=== PATIENT | male | born 1935 | race Caucasian/White ===

== ENCOUNTER 2020-11-25 16:02 | Inpatient (IN) | payer OTHER, BC, SELFPAY ==
[~2020-11-25] VITALS: Ht 182.9 cm; Wt 113.4 kg
[2020-11-25 16:04] VITALS: BP 149/81
--- NOTE | 2020-11-25 16:05 | NUR ---
PT WHEELCHAIRED TO BED 12. Addendum: 11/25/20 at 1631 by [email or web address] PT BIBA TO BED 12.
--- NOTE | 2020-11-25 16:06 | NUR ---
84 Y/O M BIBA by referral from Dr. Steel for R foot gangrene. Per pt he hit his foot on the commode x2wks ago causing the infection. Infection worsened pt reports white drainage but denies pain. Per pt was advised to go to hospital to be treated for blood clot November 07 but pt refused care. RX: Vitamin C 500mg BID, Eliquis, 5mg, Lasix 40mg, Lisinopril 20mg BID, Simvastatin 20mg SurgHx: total R hip replacement, pacemaker Jun 2016, appendicitis PMH: COPD, DVT, HTN, HPD, DM2 ALLX: PCN, Sulfa
[2020-11-25] MEDS ORDERED: NACL 0.9% 1,000 ML IV ONE (16:40)
--- NOTE | 2020-11-25 16:50 | NUR ---
andrae swab collected and taken to lab
--- NOTE | 2020-11-25 17:00 | NUR ---
labs collected and given to ear mold laboratory technician
[2020-11-25 17:24] LABS: BASOPHILS # (AUTO) 0.1 K/uL (0.00-0.22); BASOPHILS % (AUTO) 0.4 % (0.0-2.0); EOSINOPHILS # (AUTO) 0.1 K/uL (0-0.4); HEMATOCRIT 32.3 % (36-52); HEMOGLOBIN 10.8 g/dL (12.0-18.0); LYMPHOCYTES # (AUTO) 0.8 K/uL (2.0-11.5); MEAN CORPUSCULAR HEMOGLOBIN 35 pg (27-31); MEAN CORPUSCULAR HGB CONC 34 g/dL (33-37); MEAN CORPUSCULAR VOLUME 105.4 fL (80-94); MONOCYTES # (AUTO) 1.4 K/uL (0.8-1.0); MONOCYTES % (AUTO) 10.7 % (1.7-9.3); NEUTROPHILS # (AUTO) 10.7 K/uL (1.8-7.7); NEUTROPHILS % (AUTO) 81.9 % (42.2-75.2); PLATELET COUNT (AUTO) 395 K/uL (140-450); RED BLOOD CELL COUNT(AUTO) 3.07 MIL/uL (4.20-6.10); RED CELL DISTRIBUTION WIDTH 16.4 % (11.6-13.7); WHITE BLOOD COUNT (AUTO) 13.1 K/uL (4.8-10.8)
[2020-11-25] MEDS ORDERED: APIX5TAB PO (17:24)
[2020-11-25] MEDS ORDERED: ASCO500T95 PO (17:24)
[2020-11-25] MEDS ORDERED: LISI-487 PO (17:24)
[2020-11-25] MEDS ORDERED: FURO-570 PO (17:24)
[2020-11-25] MEDS ORDERED: SIMV20TA1 PO (17:24)
[2020-11-25] MEDS ORDERED: VANCOMYCIN 1,000 MG in DEXTROSE 5% 250 ML IV ONE (17:25)
--- NOTE | 2020-11-25 17:31 | NUR ---
rad at bedside
[2020-11-25] MEDS ORDERED: VANCOMYCIN 1,000 MG VIAL ONE (17:32)
--- NOTE | 2020-11-25 17:35 | NUR ---
DR. TORRES AT BEDSIDE.
[2020-11-25] MEDS ORDERED: HYDROcodone/APAP 5/325 MG 1 TAB TAB PO PRN (17:40)
[2020-11-25] MEDS ORDERED: MORPHINE SULFATE 2 MG/ML SYR IVP PRN (17:40)
[2020-11-25] MEDS ORDERED: ONDANSETRON 4 MG/2 ML VIAL IVP PRN (17:40)
[2020-11-25] MEDS ORDERED: LORazepam 2 MG/ML VIAL IVP PRN (17:40)
[2020-11-25] MEDS ORDERED: DEXTROSE 50% 50 ML SYR IVP PRN (17:40)
[2020-11-25 17:51] LABS: ALBUMIN 2.4 g/dL (3.4-5.0); ANION GAP 8.7 (8-16); ASPARTATE AMINOTRANSFERASE 14 U/L (15-37); CARBON DIOXIDE 31.7 mmol/L (21-32); CHLORIDE 100 mmol/L (98-107); GLUCOSE 149 mg/dL (74-106); POTASSIUM 4.4 mmol/L (3.5-5.1); SODIUM SERUM 136 mmol/L (136-145); TOTAL BILIRUBIN 0.6 mg/dL (0.0-1.0); UREA NITROGEN, BLOOD 33 mg/dL (7-18)
[2020-11-25] MEDS ORDERED: MEROPENEM 1,000 MG in NACL 0.9% 100 ML IV ONE (17:55)
--- NOTE | 2020-11-25 18:05 | NUR ---
PT PROVIDED WITH DINNER TRAY
[2020-11-25 18:15] LABS: PROTHROMBIN TIME 10.8 secs (10.8-13.4)
--- NOTE | 2020-11-25 19:16 | NUR ---
REPORT GIVEN TO SUNIL BACA. TRANSFER OF CARE AT THIS TIME.
--- NOTE | 2020-11-25 19:22 | NUR ---
RECEIVED REPORT FROM AMARA BARBER, FOR CONTINUITY OF CARE
--- NOTE | 2020-11-25 20:40 | NUR ---
Pt report given to SUNIL AMATO. Transfer of care at this time.
--- NOTE | 2020-11-25 20:59 | NUR ---
Patient will be admitted to care of DR. TORRES. Admited to MEDR. Will go to room 120B. Belongings list completed. Report to SUNIL AMATO.
[2020-11-25] MEDS: lisinopriL 20 MG TAB PO SCH (21:00)
[2020-11-25] MEDS: ASCORBIC ACID 500 MG TAB PO SCH (21:00)
[2020-11-25] MEDS: BLOOD GLUCOSE MONITORING 1 DEV DEV FS SCH (21:00)
[2020-11-25 21:03] VITALS: BP 129/65
[2020-11-25] MEDS ORDERED: VANCOMYCIN PER PHARMACY MC PRN (21:55)
[2020-11-25] MEDS: MEROPENEM 1,000 MG in NACL 0.9% 100 ML IV SCH (22:46)
[2020-11-25] MEDS: APIXABAN 2.5 MG TAB PO SCH (22:49)
[2020-11-25] MEDS: INSULIN LISPRO SLIDING SCALE 100 UNITS/ML VIAL SUBQ PRN (22:54)
--- NOTE | 2020-11-25 23:30 | NUR ---
ADMITTED A 84 Y/O MALE PATIENT FROM ER VIA [facility] WITH THE CHIEF COMPLAINT OF GANGRENE RIGHT FOOT. ALERT, AWAKE, VERBALLY RESPONSIVE. PLACED SAFELY IN BED. NO ACUTE DISTRESS , NO SHORTNESS OF BREATH, RESPIRATION EVEN AND UNLABORED. LUNGS CLEAR, BOWEL SOUNDS HEARD IN ALL FOUR QUADRANT. PATIENT IS ALLERGY TO SULFA AND PENICILLIN. MRSA SWAB DONE. PATIENT STATED HE HAD LARGE BM THIS AFTERNOON BEFORE GOING TO THE HOSPITAL. BELONGINGS PLACED IN THE ROOM. NEEDS ATTENDED TO.
[2020-11-26] VITALS: BP 129/65
[2020-11-26 04:00] VITALS: BP 129/65
[2020-11-26 05:29] LABS: BASOPHILS # (AUTO) 0.1 K/uL (0.00-0.22); BASOPHILS % (AUTO) 0.7 % (0.0-2.0); EOSINOPHILS # (AUTO) 0.1 K/uL (0-0.4); HEMATOCRIT 30.1 % (36-52); HEMOGLOBIN 10.3 g/dL (12.0-18.0); LYMPHOCYTES # (AUTO) 0.9 K/uL (2.0-11.5); LYMPHOCYTES % (AUTO) 8.1 % (20.5-51.1); MEAN CORPUSCULAR HEMOGLOBIN 36 pg (27-31); MEAN CORPUSCULAR HGB CONC 34 g/dL (33-37); MEAN CORPUSCULAR VOLUME 104.8 fL (80-94); MONOCYTES # (AUTO) 1.4 K/uL (0.8-1.0); MONOCYTES % (AUTO) 11.8 % (1.7-9.3); NEUTROPHILS # (AUTO) 9.1 K/uL (1.8-7.7); NEUTROPHILS % (AUTO) 78.4 % (42.2-75.2); PLATELET COUNT (AUTO) 375 K/uL (140-450); RED BLOOD CELL COUNT(AUTO) 2.88 MIL/uL (4.20-6.10); RED CELL DISTRIBUTION WIDTH 16.2 % (11.6-13.7); WHITE BLOOD COUNT (AUTO) 11.7 K/uL (4.8-10.8)
[2020-11-26] MEDS: ACETAMINOPHEN 325 MG TAB PO PRN ×2 (05:30→11:43)
[2020-11-26] MEDS: MEROPENEM 1,000 MG in NACL 0.9% 100 ML IV SCH ×3 (05:32→23:17)
[2020-11-26 05:35] LABS: ALBUMIN 2.2 g/dL (3.4-5.0); ANION GAP 10.1 (8-16); ASPARTATE AMINOTRANSFERASE 13 U/L (15-37); CARBON DIOXIDE 29.4 mmol/L (21-32); CHLORIDE 101 mmol/L (98-107); GLUCOSE 185 mg/dL (74-106); PHOSPHORUS 3.1 mg/dL (2.5-4.9); POTASSIUM 4.5 mmol/L (3.5-5.1); SODIUM SERUM 136 mmol/L (136-145); TOTAL BILIRUBIN 0.7 mg/dL (0.0-1.0); UREA NITROGEN, BLOOD 30 mg/dL (7-18)
[2020-11-26] MEDS ORDERED: VANCOMYCIN 1,000 MG VIAL ONE (05:42)
[2020-11-26] MEDS ORDERED: VANCOMYCIN 1GM/DEXT 5% PREMIX 200 ML IV SCH (06:00)
[2020-11-26] MEDS: BLOOD GLUCOSE MONITORING 1 DEV DEV FS SCH ×4 (06:40→21:00)
[2020-11-26] MEDS: INSULIN LISPRO SLIDING SCALE 100 UNITS/ML VIAL SUBQ PRN ×2 (06:44→12:56)
--- NOTE | 2020-11-26 07:35 | NUR ---
ENDORSED TO THE AM RN FOR CONTINUITY OF CARE
--- NOTE | 2020-11-26 07:40 | NUR ---
RECEIVED BEDSIDE REPORT FROM LOSS PREVENTION REPRESENTATIVE NURSE. PT AOX4. ABLE TO MAKE NEEDS KNOWN. RESPIRATION EVEN AND UNLABORED. NO RESPIRATORY DISTRESS NOTED. ON ROOM AIR. SKIN IS WARM AND DRY. NOTED GANGRENE TOES ON RIGHT FOOT AND OPEN TO AIR. IV SITE ON LAC 22 G TKO. INTACT AND PATENT. NO COMPLAIN OF PAIN AT THIS MOMENT. PLAN OF CARE DISCUSSED. SAFETY PRECAUTIONS IN PLACE. WILL CONTINUE TO MONITOR.
[2020-11-26 08:00] VITALS: BP 146/79
--- NOTE | 2020-11-26 10:26 | NUR ---
PATIENT HAS BEEN SCREENED AND CATEGORIZED HIGH NUTRITION RISK. PATIENT WILL BE SEEN WITHIN 1-2 DAYS OF ADMISSION. 11/26/20 11/27/[address]
[2020-11-26] MEDS: ASCORBIC ACID 500 MG TAB PO SCH ×2 (10:35→23:16)
[2020-11-26] MEDS: APIXABAN 2.5 MG TAB PO SCH ×2 (10:36→21:00)
[2020-11-26] MEDS: lisinopriL 20 MG TAB PO SCH ×2 (10:37→23:16)
[2020-11-26] MEDS: FUROSEMIDE 40 MG TAB PO SCH (10:37)
--- NOTE | 2020-11-26 10:40 | NUR ---
ALL SCHEDULED MEDS GIVEN. PT IS STABLE. NO DISTRESS NOTED. WILL CONTINUE TO MONITOR.
--- NOTE | 2020-11-26 12:18 | NUR ---
BLOOD SUGAR CHECK IS 160. INSULIN COVERAGE NEEDED. ADMINISTERED 2 UNITS OF INSULIN SQ PER MD ORDERED.
--- NOTE | 2020-11-26 12:55 | NUR ---
SOCIAL WORK NOTE: Patient's Orientation Unable To Assess Information Provided By AUSTIN MERRILL - Comments SW WAS UNABLE TO MEET PATIENT AT BEDSIDE. SW COMPLETED ASSESSMENT WITH PATIENT'S . Liner Replacer, Realtionship and Phone Number AUSTIN MERRILL [phone] Healthcare Power of Supervisor Lead Burning No Does Patient Have a POLST No Identifying Problems No Social Work Triggers Is A Social Work Consult Needed No Mandate Report Filed No Explanation Of Identifying Problems PATIENT IS AN 84-YEAR-OLD MALE ADMITTED FOR GANGRENE. PATIENT HAS PMHX OF COPD. Admitted From Home Home Health Provider [facility] Pre-Admission Level Of Functioning Status Assist With ADL Level Of Functioning Comment PER , PATIENT REQUIRES ASSISTANCE WITH PREPARING MEALS AND CLEANING. STATED PATIENT IS ABLE TO BATHE HIMSELF USING DME AND IS ABLE TO USE RESTROOM BUT OFTEN DOES NOT GET OUT OF BED. Prior Resources/Services Used In Last 12 Months Home Health Care Prior DME Bedside Commode Shower Chair/Tub Bench Walker Wheelchair Dialysis Comments N/A Living Situation House Lives With Spouse Patient Had Caregiver No Home Support No Caregiver Issues CG/Fam Able To Meet Need Financial Issues No Known Financial Issue Referral To The Financial Counselor Needed No Factors/Needs No D/C Needs Identified Pt/Rep Participated In Discharge Plan Yes Discharge Plan Comments TENTATIVE DISCHARGE PLAN IS FOR PATIENT TO RETURN HOME. DC Plan Status Initiated
--- NOTE | 2020-11-26 13:08 | NUR ---
WOUND CARE EVALUATION NOTES: REASON FOR EVALUATION: BLE WOUNDS SKIN ASSESSMENT DONE ON WITH THIS 81 Y/O PATIENT ADMITTED TO [facility] WITH INITIAL DIAGNOSIS OF LEGS PAIN. PAST MEDICAL HISTORY: COPD, DVT, HYPERTENSION, HYPERLIPIDEMIA. ALL ABOVE INFORMATION WAS OBTAINED FROM THE ADMISSION H&P. AND PT. PT IS AAX4. X- RAY RESULTS REVIEWED WITH PRIMARY RN. PLAN OF CARE DISCUSSED WITH PRIMARY RN AND PT. PT. VERBALIZES UNDERSTANDING. INTEGUMENTARY: -LLE MULTIPLE BROWN/ BLACK DRY STABLE SCABS WITH LARGEST TO LEFT LATERAL LEG 2X2.5CM STABLE BLACK ESCHAR -LEFT TOES MULTIPLE DRY BLACK /BROWN SCABS, LEFT HALLUX MISSING TOE NAIL AND WOUND BED IS 100% BLACK, INTERSPACES BROWN COLOR PIN POINTS SCABS -RIGHT LATERAL KNEE 3X3CM DRY STABLE SCAB, XIOMARA WOUND SKIN NORMAL AND INTACT -RLE CELLULITIS WITH +2 EDEMAS, MULTIPLE PARTIAL THICKNESS SKIN LOSS FROM KNEE DOWN TO DORSAL FOOT AND LARGEST WOUND TO RIGHT DORSAL FOOT 2.5X1.5X0.1CM WOUND BED 100% GRANULATING TISSUE, SMALL AMOUNT SEROSANGUINEOUS BLEEDING, NO ODOR, IRREGULAR WOUND SHAPE, WOUND EDGE SCABBING, WITH XIOMARA-WOUND SKIN ERYTHEMA, SWELLING, MOIST AND INTACT. OTHER MULTIPLE PARTIAL THICKNESS SKIN LOSS WOUND BEDS ARE MOIST AND PINK, NO ODORS. XIOMARA WOUND SKIN ERYTHEMA AND INTACT. -RIGHT 2ND DIGIT TOE, GANGRENE, 3X1CM, XIOMARA-WOUND SKIN DRY, SCABBING, INTERSPACES BLACK RECOMMENDATIONS: -PENDING SURGEON AND [employer]HALT SPREADER CONSULT TO BLE -CLEANSE RLE WOUNDS WITH NS. PAT DRY PACK WITH XEROFORM DRESSING AND COVER WITH DRY DRESSING, WRAP WITH KERLIX ROLLS, SECURE WITH TAPE 3X/W ON M-W-F AND PRN IF SOILING -PAINT BLE DRY SCABS, RIGHT 2ND TOE, LEFT TOES AND INTERSPACES WITH BETADINE SOLUTION BID AND UTILITY DRIVER -KEEP AREA DRY AND CLEAN AT ALL TIME, OFFLOADING BILATERAL HEELS RECOMMENDATIONS DISCUSSED WITH PRIMARY RN. PLEASE CONTACT WOUND CARE NURSE FOR ANY QUESTIONS AND CHANGES IN SKIN CONDITION.
--- NOTE | 2020-11-26 13:15 | NUR ---
WOUND CARE NURSE AT BEDSIDE
--- NOTE | 2020-11-26 14:10 | NUR ---
DC PLANNIN YRS OLD MALE PATIENT WAS ADMITTED FROM HOME WITH A DX OF GANGRENE PT HAS A HX OF HTN, HLD. FOOT X-RAY SHOWED RIGHT 2ND TOE GANGRENE .RAPID COVID TEST NEGATIVE, BLOOD CULTURE PENDING. ADMINISTERED IVF, IV ABX VANCO AND MEROPENEM. CONSULTED WITH SURGEON, ID AND PODIATRY. DC PLAN TO GO HOME WHEN STABLE CM TO FOLLOW. Addendum: 11/29/20 at 1135 by Shannon Jeffers CM DC LICENSED CUSTOMS BROKER: SPOKE TO PATIENTS ABOUT HOME HEALTH, SHE STATED THAT HE DOES HAVE HOME HEALTH, HOWEVER SHE CAN NOT CARE FOR HIM AT HOME AT THIS TIME BECAUSE PATIENT HAS BEEN CONFUSED AT WEAK AT TIMES. SHE STATED THAT PATIENT WAS AT [facility] FOR SOME TIME AND SHE PREFERS US TO SEND HIM THERE. DR. TORRES MADE AWARE. Addendum: 11/29/20 at 1159 by Shannon Jeffers CM DC LICENSED CUSTOMS BROKER: FAXED TO [facility] AND SPOKE TO KERVIN IN ADMISSIONS SHE WILL REVIEW AND CONTACT ME BACK SHORTLY. Addendum: 11/29/20 at 1326 by Shannon Jeffers CM DC LICENSED CUSTOMS BROKER: PATIENTS WAS ABLE TO SPEAK TO PATIENTS PCP HE WORKS WITH DR. TORRES AND DISCUSSED COMMUNITY EXTENDED CARE WITH HER. SHE IS AGREEABLE TO [place] [facility] Addendum: 11/29/20 at 1350 by Shannon Jeffers CM DC LICENSED CUSTOMS BROKER: RECEIVED A CALL FROM SHAHEED [place] [facility] [place]IENT HAS BEEN ACCEPTED TO ROOM 53-A UNDER DR. TORRES. THEY ARE ABLE TO COVER TRANSPORTATION. Addendum: 11/29/20 at 1444 by Shannon Jeffers CM [facility] [address] [place] [address] TORRES TRANSPORTATION 3:30 PM WITH PERSONAL CARE TRANSPORTATION [phone]
--- NOTE | 2020-11-26 14:40 | NUR ---
DISCUSSED WITH PATIENT REGARDING CONTRAST CONSENT FORM. PATIENT VERBALIZED UNDERSTANDING AND SIGNED CONSENT. FAXED CONSENT FORM TO DR. COHEN FOR HIM TO SIGN. AWAITING FOR MD TO FAX THE CONSENT FORM BACK WITH SIGNATURE
[2020-11-26 16:00] VITALS: BP 148/80
--- NOTE | 2020-11-26 17:51 | NUR ---
RECEIVED CONTRAST CONSENT FORM WITH MD SIGNATURE. AWAITING FOR DELIVERY DRIVER TO PICK PATIENT UP
--- NOTE | 2020-11-26 17:56 | NUR ---
11/26/20 RD INITIAL ASSESSMENT COMPLETED PLEASE REFER TO NUTRITION ASSESSMENT UNDER CARE ACTIVITY FOR ESTIMATED NUTRITIONAL NEEDS. 1. CONTINUE CCHO 60 GM DIET TOLERATED 2. RECOMMEND NAHID BID 3. RECOMEND ZINC AND VIT C X 21 DAYS FOR WOUND HEALING 4. RD TO F/U IN 3-5 DAYS, MODERATE RISK CONCEPCION CONDE RD
[2020-11-26] MEDS ORDERED: VANCOMYCIN 1,000 MG in NACL 0.9% 250 ML IV SCH (18:00)
--- NOTE | 2020-11-26 18:30 | NUR ---
CONTACTED FOUNDER CEO & PRESIDENT AND NOTIFIED PATIENT WAS EATING. CT PROCEDURE DELAYED TILL 2099.
--- NOTE | 2020-11-26 19:20 | NUR ---
ENDORSED TO PREFITTER NURSE FOR CONTINUITY OF CARE. PT IS STABLE.
--- NOTE | 2020-11-26 19:21 | NUR ---
RECEIVED PATIENT FROM AM SHIFT RN AWAKE , ALERT BREATHING REGULAR NON LABORED. NO ACUTE DISTRESS. DENIES PAIN. SKIN WARM AND DRY TO TOUCH. NEEDS WELL ATTENDED. KEPT CLEAN, DRY AND COMFORTABLE. WILL CONTINUE TO MONITOR.
[2020-11-26 20:00] VITALS: BP 123/62
--- NOTE | 2020-11-26 21:00 | NUR ---
INSTRUCTED PATIENT NPO AFTER MIDNIGHT WITH UNDERSTANDING. Addendum: 11/27/20 at 0317 by Karma Fam RN RN FOR SURGERY IN AM.
--- NOTE | 2020-11-26 22:44 | NUR ---
SPOKE WITH AUSTIN PATIENTS REGARDING DOCTOR OH PLAN FOR THE PATIENT TOMORROW. PER AUSTIN SHE AGREES WITH THE PLAN OF CARE AND SHE WANTS TO BE CONTACTED BEFORE THE PROCEDURE TOMORROW. PHONE NUMBER [phone]. WILL ENDORSED THIS MESSAGE TO DAY SHIFT NURSE
[2020-11-26] MEDS: SIMVASTATIN 20 MG TAB PO SCH (23:15)
--- NOTE | 2020-11-26 23:19 | NUR ---
Texted PICC RN and Eliu RN for PICC order, waiting for text / call back
--- NOTE | 2020-11-26 23:47 | NUR ---
Eliu RN from PICC RN texted back, and stated that he will come around 6am 11/27/20
[2020-11-27] MEDS: GAUZE TP SCH ×2 (01:00→13:00)
--- NOTE | 2020-11-27 02:00 | NUR ---
ROUNDS MADE PATIENT SLEEPING, NO ACUTE DISTRESS.
[2020-11-27 04:00] VITALS: BP 160/78
--- NOTE | 2020-11-27 04:52 | NUR ---
PATIENT CHECKED , AWAKE IN BED RESTING COMFORTABLY. DENIES PAIN.
[2020-11-27] MEDS: MEROPENEM 1,000 MG in NACL 0.9% 100 ML IV SCH ×3 (05:16→20:50)
[2020-11-27 06:27] LABS: BASOPHILS # (AUTO) 0.1 K/uL (0.00-0.22); BASOPHILS % (AUTO) 0.9 % (0.0-2.0); EOSINOPHILS % (AUTO) 0.4 % (0.0-4.0); HEMATOCRIT 32.1 % (36-52); HEMOGLOBIN 10.7 g/dL (12.0-18.0); LYMPHOCYTES # (AUTO) 0.8 K/uL (2.0-11.5); LYMPHOCYTES % (AUTO) 7.3 % (20.5-51.1); MEAN CORPUSCULAR HEMOGLOBIN 35 pg (27-31); MEAN CORPUSCULAR HGB CONC 33 g/dL (33-37); MEAN CORPUSCULAR VOLUME 104.3 fL (80-94); MONOCYTES # (AUTO) 1.3 K/uL (0.8-1.0); MONOCYTES % (AUTO) 11.4 % (1.7-9.3); NEUTROPHILS # (AUTO) 9.2 K/uL (1.8-7.7); PLATELET COUNT (AUTO) 363 K/uL (140-450); RED BLOOD CELL COUNT(AUTO) 3.07 MIL/uL (4.20-6.10); RED CELL DISTRIBUTION WIDTH 15.8 % (11.6-13.7); WHITE BLOOD COUNT (AUTO) 11.5 K/uL (4.8-10.8)
[2020-11-27] MEDS: BLOOD GLUCOSE MONITORING 1 DEV DEV FS SCH ×4 (06:45→21:46)
[2020-11-27 07:09] LABS: ANION GAP 11.2 (8-16); CHLORIDE 101 mmol/L (98-107); GLUCOSE 169 mg/dL (74-106); POTASSIUM 4.2 mmol/L (3.5-5.1); SODIUM SERUM 135 mmol/L (136-145); UREA NITROGEN, BLOOD 26 mg/dL (7-18)
--- NOTE | 2020-11-27 07:30 | NUR ---
RECEIVED BEDSIDE REPORT FROM DIRECTOR OF CURRICULUM NURSE. PT AOX4. ABLE TO MAKE NEEDS KNOWN. RESPIRATION EVEN AND UNLABORED. NO RESPIRATORY DISTRESS NOTED. ON ROOM AIR. SKIN IS WARM AND DRY. NOTED GANGRENE TOES ON RIGHT FOOT AND OPEN TO AIR. IV SITE ON RFA 22 G TKO. INTACT AND PATENT. NO COMPLAIN OF PAIN AT THIS MOMENT. WAITING FOR RIGHT TOE AMPUTATION PROCEDURE WITH DR. CHACKO. PLAN OF CARE DISCUSSED. SAFETY PRECAUTIONS IN PLACE. WILL CONTINUE TO MONITOR.
[2020-11-27 08:00] VITALS: BP 161/71
[2020-11-27] MEDS: APIXABAN 2.5 MG TAB PO SCH ×2 (09:52→20:53)
[2020-11-27] MEDS: ASCORBIC ACID 500 MG TAB PO SCH ×2 (09:52→20:54)
[2020-11-27] MEDS: lisinopriL 20 MG TAB PO SCH ×2 (09:53→20:54)
[2020-11-27] MEDS: FUROSEMIDE 40 MG TAB PO SCH (09:53)
[2020-11-27] MEDS ORDERED: VANCOMYCIN 1,000 MG in DEXTROSE 5% 250 ML IV SCH (10:00)
--- NOTE | 2020-11-27 10:00 | NUR ---
ALL SCHEDULED MEDS GIVEN. PT IS STABLE. NO DISTRESS NOTED. WILL CONTINUE TO MONITOR
--- NOTE | 2020-11-27 10:40 | NUR ---
MIHIR, PICC LINE NURSE AT PATIENT'S BEDSIDE.
--- NOTE | 2020-11-27 10:55 | NUR ---
PICC LINE INSERTED ON RIGHT UPPER ARM. READY TO USE. INTACT AND PATENT.
--- NOTE | 2020-11-27 11:10 | NUR ---
OR TEAM AT BEDSIDE. OR IS PICKING UP PATIENT FOR THE TOE AMPUTATION PROCEDURE.
--- NOTE | 2020-11-27 11:25 | NUR ---
INFORMED PHARMACY VANCO MEDICATION WAS NOT GIVEN DUE TO PATIENT HAVING AN AMPUTATION DONE. PHARMACY IS AWARE AND WILL CHANGE TIMING OF MEDICATION SOON PATIENT IS TRANSFERRED BACK TO THE FLOOR.
[2020-11-27] MEDS ORDERED: MIDAZOLAM 2 MG/2 ML VIAL ONE (11:30)
[2020-11-27] MEDS ORDERED: DEXAMETHASONE 4 MG/ML VIAL ONE (11:30)
[2020-11-27] MEDS ORDERED: fentaNYL citrate 0.05 MG/ML VIAL ONE (11:30)
[2020-11-27] MEDS ORDERED: ONDANSETRON 4 MG/2 ML VIAL ONE (11:30)
[2020-11-27] MEDS ORDERED: BUPIVACAINE-MPF 0.5% 30 ML VIAL INJ ONE (11:51)
[2020-11-27] MEDS ORDERED: LIDOCAINE 1% 500 MG/50 ML VIAL ONE (11:51)
[2020-11-27] MEDS ORDERED: MUPIROCIN CA NASAL 2% 1GM TUBE NS SCH (12:00)
[2020-11-27] MEDS ORDERED: CHLORHEXADINE GLUC 2% CLOTH TP SCH (12:00)
[2020-11-27] MEDS ORDERED: ONDANSETRON 4 MG/2 ML VIAL IVP PRN (12:20)
[2020-11-27] MEDS ORDERED: MEPERIDINE 25 MG/ML SYR IVP PRN (12:20)
[2020-11-27] MEDS ORDERED: HYDROmorphone 1 MG/ML AMP IVP PRN ×2 (12:20→12:30)
[2020-11-27] MEDS ORDERED: BLOOD GLUCOSE MONITORING 1 DEV DEV FS ONE (12:20)
[2020-11-27] MEDS ORDERED: MORPHINE SULFATE 2 MG/ML SYR IVP PRN (12:30)
[2020-11-27] MEDS ORDERED: HYDROcodone/APAP 5/325 MG 1 TAB TAB PO PRN (12:30)
[2020-11-27] MEDS ORDERED: MORPHINE SULFATE 4 MG/ML SYR IV PRN (12:30)
--- NOTE | 2020-11-27 13:15 | NUR ---
OR TEAM TRANSPORTED PATIENT BACK ON TO THE UNIT. PT IS STABLE. NO DISTRESS NOTED.
[2020-11-27] MEDS: VANCOMYCIN 1,000 MG in DEXTROSE 5% 250 ML IV SCH (13:28)
[2020-11-27] MEDS: NACL 0.9% 1,000 ML IV SCH ×2 (13:30→20:49)
--- NOTE | 2020-11-27 13:45 | NUR ---
ENDORSED TO SUNIL CAMARILLO FOR CONTINUITY OF CARE. PT IS POST OP TOE AMPUTATION ON RIGHT FOOT AND IS STABLE AT THE MOMENT.
[2020-11-27 16:00] VITALS: BP 128/56
[2020-11-27] MEDS: MUPIROCIN CA NASAL 2% 1GM TUBE NS SCH (16:00)
[2020-11-27] MEDS: CHLORHEXADINE GLUC 2% CLOTH TP SCH (16:00)
[2020-11-27] MEDS: INSULIN LISPRO SLIDING SCALE 100 UNITS/ML VIAL SUBQ PRN ×2 (17:58→22:08)
--- NOTE | 2020-11-27 18:02 | NUR ---
ADMINISTERED PRN INSULIN FOR BLOOD SUGAR 215. PATIENT TOLERATED WELL. MEDICATION EDUCATION REINFORCEMENT NEEDED, PATIENT IS CONFUSED W/ GARBLED SPEECH. SAFETY MEASURES IN PLACE. WILL CONTINUE TO MONITOR.
--- NOTE | 2020-11-27 19:38 | NUR ---
ENDORSED PATIENT TO NIGHTSHIFT NURSE FOR CONTINUITY OF CARE.
--- NOTE | 2020-11-27 19:39 | NUR ---
RECEIVED TRANSFER OF CARE REPORT FROM MORNING RN FOR CONTINUATION OF CARE. PT FOUND AWAKE RESTING IN BED. PT IS ALERT TO NAME AND DATE OF . PT SHOWED NO SIGNS OF DISTRESS. PT HAS VISIBLE EQUAL RISE AND FALL UPON RESPIRATION. PT FOUND TO HAVE RIGHT UPPER ARM PICC LINE AND A RIGHT FOREARM 22 GAUGE IV. PT HAS GAUZE WRAPPING TO BILATERAL LOWER LEGS AND IS INTACT. BED IS LOCKED IN LOWEST POSITION WITH 2 SIDE RAILS UP FOR SAFETY AND CALL LIGHT WITHIN REACH. WILL CONTINUE TO MONITOR.
[2020-11-27 20:00] VITALS: BP 144/67
[2020-11-27] MEDS: SIMVASTATIN 20 MG TAB PO SCH (20:54)
--- NOTE | 2020-11-27 21:38 | NUR ---
PT FOUND AWAKE RESTING IN BED WATCHING TV. PT STATES NO PAIN. PT HAS VISIBLE EQUAL RISE AND FALL UPON RESPIRATION. BED LOCKED IN LOWEST POSITION WITH 2 SIDE RAILS UP FOR SAFETY AND CALL LIGHT WITHIN REACH. WILL CONTINUE TO MONITOR.
--- NOTE | 2020-11-27 22:15 | NUR ---
PT "AUSTIN" CALLED AND WAS UPDATED ON PT STATUS.
--- NOTE | 2020-11-27 23:14 | NUR ---
PT FOUND ASLEEP RESTING IN BED. PT HAS VISIBLE EQUAL RISE AND FALL UPON RESPIRATION. BED IS LOCKED IN LOWEST POSITION WITH 2 SIDE RAILS UP FOR SAFETY AND CALL LIGHT WITHIN REACH. WILL CONTINUE TO MONITOR.
[2020-11-28] VITALS: BP 133/63
[2020-11-28] MEDS: GAUZE TP SCH ×2 (01:00→13:00)
[2020-11-28] MEDS: VANCOMYCIN 1,000 MG in DEXTROSE 5% 250 ML IV SCH ×2 (01:25→14:37)
[2020-11-28] MEDS: NACL 0.9% 1,000 ML IV SCH ×3 (01:47→14:37)
--- NOTE | 2020-11-28 03:06 | NUR ---
PT FOUND AWAKE IN BED. PT STATES NO DISCOMFORT. NS IS RUNNING AT 120ML/HR. PT WAS PROVIDED A URINAL. BED LOCKED IN LOWEST POSITION WITH 2 SIDE RAILS UP FOR SAFETY AND CALL LIGHT WITHIN REACH.
[2020-11-28 04:00] VITALS: BP 149/62
--- NOTE | 2020-11-28 05:04 | NUR ---
ROUNDING PERFORMED. PT FOUND AWAKE IN BED. PT STATES NO PAIN. NS IS RUNNING AT 120ML/HR. BED LOCKED IN LOWEST POSITION WITH 2 SIDE RAILS UP FOR SAFETY AND CALL LIGHT WITHIN REACH.
[2020-11-28] MEDS: MEROPENEM 1,000 MG in NACL 0.9% 100 ML IV SCH ×3 (05:20→21:56)
[2020-11-28] MEDS: BLOOD GLUCOSE MONITORING 1 DEV DEV FS SCH ×4 (06:31→21:56)
[2020-11-28] MEDS: INSULIN LISPRO SLIDING SCALE 100 UNITS/ML VIAL SUBQ PRN ×4 (06:33→21:54)
[2020-11-28 07:05] LABS: BASOPHILS % (AUTO) 0.3 % (0.0-2.0); HEMATOCRIT 28.2 % (36-52); HEMOGLOBIN 9.5 g/dL (12.0-18.0); LYMPHOCYTES # (AUTO) 0.5 K/uL (2.0-11.5); MEAN CORPUSCULAR HEMOGLOBIN 36 pg (27-31); MEAN CORPUSCULAR HGB CONC 34 g/dL (33-37); MONOCYTES # (AUTO) 0.6 K/uL (0.8-1.0); MONOCYTES % (AUTO) 5.3 % (1.7-9.3); NEUTROPHILS # (AUTO) 9.3 K/uL (1.8-7.7); PLATELET COUNT (AUTO) 380 K/uL (140-450); RED BLOOD CELL COUNT(AUTO) 2.66 MIL/uL (4.20-6.10); RED CELL DISTRIBUTION WIDTH 16.2 % (11.6-13.7); WHITE BLOOD COUNT (AUTO) 10.4 K/uL (4.8-10.8)
--- NOTE | 2020-11-28 07:16 | NUR ---
RECEIVED REPORT FROM NIGHT NURSE FOR CONTINUITY OF CARE. PT IS STABLE. PT RESTING IN BED. NO SIGNS OF DISTRESS NOTED. PT ON ROOM AIR. PT HAS HIMANSHU PICC LINE INFUSING NORMAL SALINE AT 120ML/H, RFA 22G SALINE LOCK. PT S/P BILATERAL LE NONEXCISIONAL DEBRIDEMENT AND RIGHT 2ND TOE AMPUTATION. DRESSING INTACT AND IN PLACE. PT CONTACT FOR MRSA IN NARES. SAFETY MEASURES IN PLACE, WILL CONTINUE TO MONITOR.
--- NOTE | 2020-11-28 07:16 | NUR ---
TRANSFER OF CARE REPORT PROVIDED TO MORNING RN.
[2020-11-28 07:17] LABS: CARBON DIOXIDE 29.6 mmol/L (21-32); CHLORIDE 102 mmol/L (98-107); GLUCOSE 197 mg/dL (74-106); POTASSIUM 4.6 mmol/L (3.5-5.1); SODIUM SERUM 135 mmol/L (136-145); UREA NITROGEN, BLOOD 29 mg/dL (7-18)
[2020-11-28 07:59] LABS: NEUTROPHILS % (AUTO) 89.4 % (42.2-75.2)
[2020-11-28 08:00] VITALS: BP 129/53
[2020-11-28] MEDS: APIXABAN 2.5 MG TAB PO SCH ×2 (08:30→21:57)
[2020-11-28] MEDS: FUROSEMIDE 40 MG TAB PO SCH (08:31)
[2020-11-28] MEDS: ASCORBIC ACID 500 MG TAB PO SCH ×2 (08:31→21:56)
[2020-11-28] MEDS: lisinopriL 20 MG TAB PO SCH ×2 (08:31→21:56)
--- NOTE | 2020-11-28 08:36 | NUR ---
ADMINISTERED SCHEDULED MEDICATION, MEDICATION EDUCATION PROVIDED. PT VERBALIZED UNDERSTANDING. PT TOLERATED WELL. PT IS CONFUSED. PT HAS A RIGHT PROTRUDING COLLAR BONE. PT DENIES PAIN WHEN PALPATED. WILL CONTINUE TO MONITOR.
--- NOTE | 2020-11-28 08:49 | NUR ---
NOTIFIED DR TORRES PT HAS A RIGHT PROTRUDING COLLAR BONE. RECEIVED TORB FOR CHEST X-RAY. WILL INPUT ORDER.
--- NOTE | 2020-11-28 11:34 | NUR ---
ADMINISTERED 8 UNITS OF HUMALOG FOR BLOOD GLUCOSE OF 333. MEDICATION EDUCATION PROVIDED. PT VERBALIZED UNDERSTANDING. PT TOLERATED WELL. WILL CONTINUE TO MONITOR.
[2020-11-28 12:00] VITALS: BP 137/57
--- NOTE | 2020-11-28 13:23 | NUR ---
ADMINISTERED SCHEDULED MEDICATION, MEDICATION EDUCATION PROVIDED. HOLDING GAUZE CHANGE PT HAD SURGERY YESTERDAY AND SURGEON IS DUE TO DO FIRST DRESSING CHANGE. PT STABLE, WILL CONTINUE TO MONITOR.
[2020-11-28] MEDS ORDERED: HYDROcodone/APAP 10/325 MG 1 TAB TAB PO PRN (13:40)
--- NOTE | 2020-11-28 14:00 | NUR ---
RELAYED TO [employer] HERRING. THE RESULT OF CT ANGIO ON LE WITH CONTRAST. NO ORDERS GIVEN.
--- NOTE | 2020-11-28 14:40 | NUR ---
ADMINISTERED SCHEDULED MEDICATION, MEDICATION EDUCATION PROVIDED. PT TOLERATED WELL. PT IS STABLE, WILL CONTINUE TO MONITOR.
--- NOTE | 2020-11-28 15:29 | NUR ---
ROUNDING ON PT. PT IS STABLE, PT RESTING IN BED. NO SIGNS OF DISTRESS NOTED. CALL LIGHT WITHIN REACH, WILL CONTINUE TO MONITOR.
[2020-11-28 16:00] VITALS: BP 124/79
[2020-11-28] MEDS: CHLORHEXADINE GLUC 2% CLOTH TP SCH (16:08)
[2020-11-28] MEDS: MUPIROCIN CA NASAL 2% 1GM TUBE NS SCH (16:08)
--- NOTE | 2020-11-28 16:18 | NUR ---
ADMINISTERED SCHEDULED MEDICATION, MEDICATION EDUCATION PROVIDED. PT TOLERATED WELL. SAFETY MEASURES IN PLACE, WILL CONTINUE TO MONITOR.
--- NOTE | 2020-11-28 16:26 | NUR ---
ADMINISTERED 4 UNITS OF HUMALOG FOR BLOOD GLUCOSE OF 220. MEDICATION EDUCATION PROVIDED. PT VERBALIZED UNDERSTANDING. PT TOLERATED WELL. WILL CONTINUE TO MONITOR.
--- NOTE | 2020-11-28 19:20 | NUR ---
ENDORSE PT TO NIGHT NURSE FOR CONTINUITY OF CARE
[2020-11-28 20:00] VITALS: BP 137/65
[2020-11-28] MEDS: SIMVASTATIN 20 MG TAB PO SCH (21:56)
[2020-11-29] VITALS: BP 155/65
--- NOTE | 2020-11-29 | NUR ---
MADE ROUNDS , NO S/X OF ACUTE DISTRESS NOTED . WILL CONT. TO MONITOR .
[2020-11-29] MEDS: GAUZE TP SCH ×2 (01:00→12:27)
[2020-11-29] MEDS: VANCOMYCIN 1,000 MG in DEXTROSE 5% 250 ML IV SCH (01:48)
--- NOTE | 2020-11-29 02:00 | NUR ---
O2 SAT WNL . NO S/X OF ACUTE DISTRESS NOTED . WILL CONT. TO MONITOR.
--- NOTE | 2020-11-29 02:00 | NUR ---
RESTING ON BED - ON TELE MONITOR .
[2020-11-29 04:00] VITALS: BP 174/75
--- NOTE | 2020-11-29 04:00 | NUR ---
MADE ROUNDS , NO S/SX OF ACUTE DISTRESS NOTED .
[2020-11-29] MEDS: MEROPENEM 1,000 MG in NACL 0.9% 100 ML IV SCH ×2 (05:20→12:26)
[2020-11-29] MEDS: NACL 0.9% 1,000 ML IV SCH (06:00)
--- NOTE | 2020-11-29 06:00 | NUR ---
RESTING ON BED . NO COMPLAIN MADE .
[2020-11-29 06:07] LABS: BASOPHILS % (AUTO) 0.2 % (0.0-2.0); EOSINOPHILS % (AUTO) 0.4 % (0.0-4.0); HEMATOCRIT 27.1 % (36-52); HEMOGLOBIN 9.2 g/dL (12.0-18.0); LYMPHOCYTES % (AUTO) 9.1 % (20.5-51.1); MEAN CORPUSCULAR HEMOGLOBIN 36 pg (27-31); MEAN CORPUSCULAR HGB CONC 34 g/dL (33-37); MEAN CORPUSCULAR VOLUME 105.1 fL (80-94); MONOCYTES # (AUTO) 1.1 K/uL (0.8-1.0); MONOCYTES % (AUTO) 10.7 % (1.7-9.3); NEUTROPHILS # (AUTO) 8.3 K/uL (1.8-7.7); NEUTROPHILS % (AUTO) 79.6 % (42.2-75.2); PLATELET COUNT (AUTO) 379 K/uL (140-450); RED BLOOD CELL COUNT(AUTO) 2.58 MIL/uL (4.20-6.10); RED CELL DISTRIBUTION WIDTH 15.9 % (11.6-13.7); WHITE BLOOD COUNT (AUTO) 10.4 K/uL (4.8-10.8)
[2020-11-29 06:29] LABS: ALBUMIN 2.2 g/dL (3.4-5.0); ANION GAP 10.6 (8-16); ASPARTATE AMINOTRANSFERASE 17 U/L (15-37); CARBON DIOXIDE 25.7 mmol/L (21-32); CHLORIDE 100 mmol/L (98-107); GLUCOSE 176 mg/dL (74-106); POTASSIUM 4.3 mmol/L (3.5-5.1); SODIUM SERUM 132 mmol/L (136-145); TOTAL BILIRUBIN 0.6 mg/dL (0.0-1.0); UREA NITROGEN, BLOOD 42 mg/dL (7-18)
[2020-11-29] MEDS: INSULIN LISPRO SLIDING SCALE 100 UNITS/ML VIAL SUBQ PRN ×2 (06:37→12:33)
[2020-11-29] MEDS: BLOOD GLUCOSE MONITORING 1 DEV DEV FS SCH ×2 (06:37→12:27)
--- NOTE | 2020-11-29 07:42 | NUR ---
ENDORSED - PT - STABLE .
[2020-11-29 08:00] VITALS: BP 159/88
--- NOTE | 2020-11-29 08:07 | NUR ---
PATIENT IS AOX2-3, PACED RHYTHM, RESPIRATIONS EVEN AND UNLABORED ON ROOM AIR. DENIES PAIN AT THIS TIME. VITAL SIGNS STABLE. BILATERAL LEGS WITH WRAPPED KERLIX GAUZE, PULSES DIMINISHED AT BILATERAL DORSALIS PEDIS. SENSATIONS INTACT, ABLE TO WIGGLE TOES. PATIENT TOLERATED BREAKFAST WELL WITH NO NAUSEA/VOMITING. PARTICIPATED WITH PHYSICAL THERAPY. UPDATED PATIENT ON PLAN OF CARE. WILL CONTINUE TO MONITOR.
[2020-11-29] MEDS: FUROSEMIDE 40 MG TAB PO SCH (09:09)
[2020-11-29] MEDS: lisinopriL 20 MG TAB PO SCH (09:09)
[2020-11-29] MEDS: APIXABAN 2.5 MG TAB PO SCH (09:09)
[2020-11-29] MEDS ORDERED: METR500T1 PO (09:13)
[2020-11-29] MEDS ORDERED: LEVO750T51 PO (09:13)
[2020-11-29] MEDS: ASCORBIC ACID 500 MG TAB PO SCH (09:14)
--- NOTE | 2020-11-29 11:30 | NUR ---
SPOKE TO OF PATIENT WHO EXPRESSES DISCOMFORT TAKING HIM HOME SINCE HE HAS BEEN BEDBOUND FOR THE PAST 6 MONTHS AND DOES NOT PARTICIPATE IN HOME HEALTH PT. HE IS FREQUENTLY DISORIENTED. NOTIFIED DR. TORRES.
[2020-11-29 12:00] VITALS: BP 162/65
--- NOTE | 2020-11-29 12:56 | NUR ---
UPDATED AUSTIN ON PLAN TO TRANSFER TO SNF. PATIENT MADE AWARE TOO.
[2020-11-29 13:00] VITALS: BP 152/68
[2020-11-29] MEDS ORDERED: GAUZE TP SCH (13:00)
--- NOTE | 2020-11-29 15:22 | NUR ---
CALLED REPORT TO EXTENDED CARE FACILITY TO SUNIL SMITH.
--- NOTE | 2020-11-29 15:45 | NUR ---
WOUND CARE DONE ON BILATERAL LEGS AND TOE USING 4X4 GAUZE AND NORMAL SALINE. WRAPPED WITH KERLIX GAUZE. PICC LINE REMOVED WITH CATHETER TIP INTACT. IV REMOVED WITH CATHETER TIP INTACT. PATIENT TRANSPORTED WITH ALL BELONGINGS. Addendum: 11/29/20 at 1624 by Agency 01 SUNIL RN PHOTO DOCUMENTATION OF WOUNDS DONE.
== END 2020-11-29 16:10 | DRG 853 ==
LOC: MED 16:02 → MTU 17:08 → UNDOADMIN 17:08 → UNDODISIN 11-29 15:10
PROVIDERS: ADMIT Preventive Medicine Preventive Medicine/Occupational Environmental Medicine; ATTEND Preventive Medicine Preventive Medicine/Occupational Environmental Medicine
PROC: 3E0234Z Introduction of Serum, Toxoid and Vaccine into Muscle, Percutaneous Approach (ICD-10-PCS; 2020-11-25)
PROC: 0JBQ0ZZ Excision of Right Foot Subcutaneous Tissue and Fascia, Open Approach (ICD-10-PCS; 2020-11-27)
PROC: 0Y9H0ZZ Drainage of Right Lower Leg, Open Approach (ICD-10-PCS; 2020-11-27)
PROC: 0HDLXZZ Extraction of Left Lower Leg Skin, External Approach (ICD-10-PCS; 2020-11-27)
PROC: 0HDKXZZ Extraction of Right Lower Leg Skin, External Approach (ICD-10-PCS; 2020-11-27)
PROC: 02HV33Z Insertion of Infusion Device into Superior Vena Cava, Percutaneous Approach (ICD-10-PCS; 2020-11-27)
PROC: 0Y6R0Z2 Detachment at Right 2nd Toe, Mid, Open Approach (ICD-10-PCS; principal; 2020-11-27 10:45)
DX: A41.9 Sepsis, unspecified organism (principal); E43 Unspecified severe protein-calorie malnutrition; M72.6 Necrotizing fasciitis; L03.115 Cellulitis of right lower limb; E87.1 Hypo-osmolality and hyponatremia; L03.116 Cellulitis of left lower limb; I50.9 Heart failure, unspecified; Z20.822 Contact with and (suspected) exposure to COVID-19; D64.9 Anemia, unspecified; E78.5 Hyperlipidemia, unspecified; E83.52 Hypercalcemia; I73.9 Peripheral vascular disease, unspecified; J44.9 Chronic obstructive pulmonary disease, unspecified; M20.41 Other hammer toe(s) (acquired), right foot; M20.42 Other hammer toe(s) (acquired), left foot; M77.32 Calcaneal spur, left foot; M77.31 Calcaneal spur, right foot; I11.0 Hypertensive heart disease with heart failure; M19.071 Primary osteoarthritis, right ankle and foot; S80.11XA Contusion of right lower leg, initial encounter; X58.XXXA Exposure to other specified factors, initial encounter; R73.9 Hyperglycemia, unspecified; Z88.0 Allergy status to penicillin; Z88.2 Allergy status to sulfonamides; Z23 Encounter for immunization; Z90.49 Acquired absence of other specified parts of digestive tract; Y93.89 Activity, other specified; Y92.89 Other specified places as the place of occurrence of the external cause; Y99.8 Other external cause status; Z68.33 Body mass index [BMI] 33.0-33.9, adult
CPT/HCPCS: 36415; 71045; 73000; 73630; 73701; 80048; 80053; 80202; 82948; 83735; 84100; 85025; 85610; 85651; 86140; 86886; 86900; 86901; 87040; 87081; 90715; 93925; 93970; 97163-GP; 99285; J1100; J1815; J2001; J2185; J2250; J2405; J3010; J3370; J3490; J7030; J7060